=== PATIENT | male | born 2000 | race Caucasian/White ===

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

== ENCOUNTER 2021-06-26 19:10 | Emergency (ER) | payer MEDICARE, OTHER ==
[~2021-06-26] VITALS: Ht 177.8 cm; Wt 71.7 kg
== END 2021-06-26 22:10 | disposition home or self-care (01) ==
LOC: ER 19:10
DX: S61.012A Laceration without foreign body of left thumb without damage to nail, initial encounter (principal); W26.0XXA Contact with knife, initial encounter; J45.909 Unspecified asthma, uncomplicated; G43.909 Migraine, unspecified, not intractable, without status migrainosus
CPT/HCPCS: 12004; 73140; 82947; 90471; 90714; 93005; 93010; 99283-25

== ENCOUNTER 2021-12-09 18:31 | Emergency (ER) | payer MEDICARE, OTHER | END 2021-12-09 20:28 | disposition home or self-care (01) | LOC: ER 18:31 | DX: J45.901 Unspecified asthma with (acute) exacerbation (principal); F17.290 Nicotine dependence, other tobacco product, uncomplicated ==